=== PATIENT | male | born 1985 | race Caucasian/White ===

== ENCOUNTER 2018-03-06 09:00 | Emergency (ER) | payer SELFPAY ==
[2018-03-06] MEDS ORDERED: KETOROLAC 30 MG/ML INJ ONE (09:37)
[2018-03-06] MEDS ORDERED: ONDANSETRON 4 MG/2 ML VIAL ONE (09:37)
[2018-03-06 10:05] LABS: Absolute Lymphocytes (CBC) 1.6 K/uL (0.7-4.9); Absolute Monocytes 0.8 K/uL (0.1-1.3); Basophils % 0.6 % (0-1.3); Eosinophils % 2.3 % (0-4.4); Hematocrit 42.3 % (39.6-49.0); Lymphocytes % 20.5 % (15.3-44.8); MPV 7.3 fL (7.6-11.3); Monocytes % 10.5 % (3.3-12.3); RBC Red Blood Cell Count 4.73 M/uL (4.33-5.43)
[2018-03-06 10:08] LABS: Urine Blood NEGATIVE (NEG); Urine Glucose NEGATIVE (NEG); Urine Protein 1+ (NEG); Urine pH 7.5 (5.0-7.0)
[2018-03-06 10:15] LABS: Albumin 3.2 g/dL (3.4-5.0); Bilirubin Direct 0.1 mg/dL (0-0.2); Bilirubin Total 0.3 mg/dL (0.2-1.0); Protein, Total 7.1 g/dL (6.4-8.2)
--- NOTE | 2018-03-06 11:19 | RAD REPORT ---
EXAM DESCRIPTION: US - Scrotum Testicles - 03/06/2018 10:06 am CLINICAL HISTORY: Scrotal pain COMPARISON: None FINDINGS: Right testicle measures 4.4 x 2.8 x 2.9 centimeters. Echotexture is homogeneous. Normal bl ood flow Left testicle measures 4 x 2.5 x 3.1 centimeters. Echotexture is homogeneous. Normal blood flow The epididymides are normal in size and echotexture. Normal blood flow is seen. Right scrotal skin thickening is present. IMPRESSION: Right scrotal skin thickening
--- NOTE | 2018-03-06 12:08 | ER ---
Nurse's Notes [facility] Name: Christofer Joshua Age: 33 yrs Sex: Male : 1985 Arrival Date: 03/06/2018 Time: 09:04 Bed 20 Private MD: None, None Diagnosis: Testicular pain Presentation: 03/06 09:12 Presenting complaint: Patient states: Right testicular swelling and groin pain x 1 hr, jl7 inability to void x 2 weeks "Even when I feel like I have to go it just barely trickles out.". Transition of care: patient was not received from another setting of care. Onset of symptoms was March 06, 2018. Risk Assessment: Do you want to hurt yourself or someone else? Patient reports no desire to harm self or others. Initial Sepsis Screen: Does the patient meet any 2 criteria? No. Patient's initial sepsis screen is negative. Does the patient have a suspected source of infection? No. Patient's initial sepsis screen is negative. Care prior to arrival: None. 09:12 Method Of Arrival: Ambulatory [facility] 09:12 Acuity: JANINA 3 jl7 Triage Assessment: 09:15 General: Appears in no apparent distress. uncomfortable, Behavior is calm, cooperative, jl7 appropriate for age. Pain: Complains of pain in right testicle Pain radiates to groin Pain currently is 10 out of 10 on a pain scale. Is continuous, Alleviated by Standing feels better than sitting. EENT: No signs and/or symptoms were reported regarding the EENT system. Neuro: Level of Consciousness is awake, alert, obeys commands, Oriented to person, place, time, situation. Cardiovascular: Patient's skin is warm and dry. Respiratory: Airway is patent Respiratory effort is even, unlabored, Respiratory pattern is regular, symmetrical. GI: No signs and/or symptoms were reported involving the gastrointestinal system. : No signs and/or symptoms were reported regarding the genitourinary system. Derm: Skin is pink, warm \\T\\ dry. Musculoskeletal: No signs and/or symptoms reported regarding the musculoskeletal system. Historical: - Allergies: 09:15 No Known Allergies; jl7 - Home Meds: 09:15 None [Active]; jl7 - PMHx: 09:15 None; jl7 - PSHx: 09:15 None; jl7 - Immunization history:: Adult Immunizations unknown. - Social history:: Smoking status: Patient uses tobacco products, smokes one pack cigarettes per day. - Ebola Screening: : No symptoms or risks identified at this time. Screenin:49 Abuse screen: Denies threats or abuse. Denies injuries from another. Nutritional jl7 screening: No deficits noted. Tuberculosis screening: No symptoms or risk factors identified. Fall Risk IV access (20 points). Total Manuel Fall Scale indicates No Risk (0-24 pts). Assessment: 09:40 General: See triage assessment. jl7 10:40 Reassessment: Patient appears in no apparent distress at this time. Patient and/or jl7 family updated on plan of care and expected duration. Pain level reassessed. Patient is alert, oriented x 3, equal unlabored respirations, skin warm/dry/pink. Patient states feeling better. 12:00 Reassessment: Patient appears in no apparent distress at this time. No changes from jl7 previously documented assessment. Patient and/or family updated on plan of care and expected duration. Pain level reassessed. Patient is alert, oriented x 3, equal unlabored respirations, skin warm/dry/pink. Vital Signs: 09:15 BP 106 / 79; Pulse 97; Resp 16 S; Temp 99.1(O); Pulse Ox 99% on R/A; Weight 83.91 kg jl7 (R); Height 5 ft. 8 in. (172.72 cm) (R); Pain 10/10; 11:36 BP 129 / 81; Pulse 79; Resp 18; Pulse Ox 99% on R/A; mh5 09:15 Body Mass Index 28.13 (83.91 kg, 172.72 cm) jl7 ED Course: 09:04 Patient arrived in ED. mr 09:04 None, None is Private Physician. mr 09:05 Tevin Wang, ZEN is Primary Nurse. jl7 09:06 Marko Mccarthy PA is PHCP. cp 09:06 Yordy Hawkins MD is Attending Physician. cp 09:14 Triage completed. jl7 09:15 Arm band placed on right wrist. jl7 09:40 Missed attempt(s): 20 gauge in right antecubital area. jl7 09:45 Initial lab(s) drawn, by la, sent to lab. Urine collected: clean catch specimen, jl7 cloudy, Bladder scan completed. 45 mL. Inserted saline lock: 22 gauge in right forearm, using aseptic technique. Blood collected. 09:49 Patient has correct armband on for positive identification. Placed in gown. Bed in low jl7 position. Call light in reach. Side rails up X 1. Pulse ox on. NIBP on. Warm blanket given. 09:54 US Scrotum Testicles In Process Unspecified. EDMS 12:26 No provider procedures requiring assistance completed. IV discontinued, intact, jl7 bleeding controlled, No redness/swelling at site. Pressure dressing applied. Administered Medications: 10:15 Drug: TORadol 30 mg Route: IVP; Site: right forearm; jl7 10:45 Follow up: Response: No adverse reaction; Pain is decreased jl7 10:29 Not Given (Patient Refused): Zofran 4 mg IVP once; over 2 minutes jl7 12:15 Drug: Rocephin (cefTRIAXone) 250 mg Route: IM; Site: right deltoid; jl7 12:27 Follow up: Response: No adverse reaction jl7 Outcome: 12:07 Discharge ordered by . ps1 12:26 Discharged to home ambulatory. jl7 12:26 Condition: stable 12:26 Discharge instructions given to patient, family, Instructed on discharge instructions, follow up and referral plans. medication usage, Demonstrated understanding of instructions, follow-up care, medications, Prescriptions given X 3. 12:27 Patient left the ED. jl7 Signatures: Dispatcher [employer] EDTX Sandi Saldaña mr Marko Mccarthy PA PA cp Martinez, Maria 5 Tevin Wang RN RN jl7 Yordy Hawkins MD MD ps1
--- NOTE | 2018-03-06 12:08 | EDPHYS ---
Physician Documentation [facility] Name: Christofer Joshua Age: 33 yrs Sex: Male : 1985 Arrival Date: 03/06/2018 Time: 09:04 Bed 20 Private MD: None, None ED Physician Yordy Hawkins HPI: 03/06 09:18 This 33 yrs old Male presents to ER via Ambulatory with complaints of ps1 Testicular Swelling. 09:18 pain onset for last 4 days. Has had a history of retention for last week described as ps1 feeling like having to defecate to be able to urinate. Pt states that he is monogamous. No new sexual encounters. Pain rated as severe with palpation. . Historical: - Allergies: 09:15 No Known Allergies; jl7 - Home Meds: 09:15 None [Active]; jl7 - PMHx: 09:15 None; jl7 - PSHx: 09:15 None; jl7 - Immunization history:: Adult Immunizations unknown. - Social history:: Smoking status: Patient uses tobacco products, smokes one pack cigarettes per day. - Ebola Screening: : No symptoms or risks identified at this time. ROS: 09:18 Constitutional: Negative for fever, chills, and weight loss, Eyes: Negative for injury, ps1 pain, redness, and discharge, Cardiovascular: Negative for chest pain, palpitations, and edema, Respiratory: Negative for shortness of breath, cough, wheezing, and pleuritic chest pain, Abdomen/GI: Negative for abdominal pain, nausea, vomiting, diarrhea, and constipation, MS/Extremity: Negative for injury and deformity, Skin: Negative for injury, rash, and discoloration, Neuro: Negative for headache, weakness, numbness, tingling, and seizure, Psych: Negative for depression, anxiety, suicide ideation, homicidal ideation, and hallucinations. 09:18 : Positive for urinary symptoms, testicular pain Exam: 09:18 Constitutional: This is a well developed, well nourished patient who is awake, alert, ps1 and in no acute distress. Head/Face: Normocephalic, atraumatic. Eyes: Pupils equal round and reactive to light, extra-ocular motions intact. Lids and lashes normal. Conjunctiva and sclera are non-icteric and not injected. Chest/axilla: Normal chest wall appearance and motion. Nontender with no deformity. No lesions are appreciated. Cardiovascular: Regular rate and rhythm. No gallops, murmurs, or rubs. Normal PMI, no JVD. No pulse deficits. Respiratory: Lungs have equal breath sounds bilaterally, clear to auscultation and percussion. No rales, rhonchi or wheezes noted. No increased work of breathing, no retractions or nasal flaring. Abdomen/GI: Soft, non-tender, with normal bowel sounds. No distension or tympany. No guarding or rebound. No evidence of tenderness throughout. Skin: Warm, dry with normal turgor. Normal color with no rashes, no lesions, and no evidence of cellulitis. MS/ Extremity: Pulses equal, no cyanosis. Neurovascular intact. Full, normal range of motion. Neuro: Awake and alert, GCS 15, oriented to person, place, time, and situation. Cranial nerves II-XII grossly intact. Sensory grossly intact. 09:18 : Male external genitalia: Circumcision noted. cremasteric reflex present right, present left, tenderness, of the right testicle is noted, of the epididymis area. Vital Signs: 09:15 BP 106 / 79; Pulse 97; Resp 16 S; Temp 99.1(O); Pulse Ox 99% on R/A; Weight 83.91 kg jl7 (R); Height 5 ft. 8 in. (172.72 cm) (R); Pain 10/10; 11:36 BP 129 / 81; Pulse 79; Resp 18; Pulse Ox 99% on R/A; mh5 09:15 Body Mass Index 28.13 (83.91 kg, 172.72 cm) jl7 MDM: 09:06 Patient medically screened. cp 03/06 09:17 Order name: CBC with Diff; Complete Time: 10:09 ps1 03/06 09:17 Order name: Creatinine for Radiology; Complete Time: 10:20 ps1 03/06 09:17 Order name: Hepatic Function; Complete Time: 10:20 ps1 03/06 09:17 Order name: Lipase; Complete Time: 10:20 ps1 03/06 09:17 Order name: CMP; Complete Time: 10:20 ps1 03/06 09:17 Order name: IV Saline Lock; Complete Time: 09:48 ps1 03/06 09:17 Order name: Labs collected and sent; Complete Time: 09:48 ps1 03/06 09:17 Order name: US Scrotum Testicles; Complete Time: 11:29 ps1 03/06 09:17 Order name: GC (GONORR/CHLAMYDIA) Probe ps1 03/06 09:34 Order name: Urine Dipstick--Ancillary (enter results); Complete Time: 10:09 bd 03/06 09:17 Order name: Urine Dipstick-Ancillary (obtain specimen); Complete Time: 09:48 ps1 03/06 09:18 Order name: Bladder Scanner; Complete Time: 09:48 ps1 Administered Medications: 10:15 Drug: TORadol 30 mg Route: IVP; Site: right forearm; jl7 10:45 Follow up: Response: No adverse reaction; Pain is decreased jl7 10:29 Not Given (Patient Refused): Zofran 4 mg IVP once; over 2 minutes jl7 12:15 Drug: Rocephin (cefTRIAXone) 250 mg Route: IM; Site: right deltoid; jl7 12:27 Follow up: Response: No adverse reaction jl7 Disposition: 03/06/18 12:07 Discharged to Home. Impression: Testicular pain. - Condition is Stable. - Discharge Instructions: Epididymitis. - Prescriptions for Anaprox DS 550 mg Oral Tablet - take 1 tablet by ORAL route every 12 hours As needed; 20 tablet. Levaquin 750 mg Oral Tablet - take 1 tablet by ORAL route once daily for 10 days; 10 tablet. Medrol (Luis) 4 mg Oral Tablets, Dose Pack - take 1 tablet by ORAL route as directed - follow package instructions; 1 packet. - Medication Reconciliation Form, Thank You Letter, Antibiotic Education, Prescription Opioid Use form. - Follow up: Private Physician; When: As needed; Reason: Recheck today's complaints, Continuance of care, Re-evaluation by your physician. Follow up: Emergency Department; When: As needed; Reason: Fever > 102 F, Worsening of condition. - Problem is new. - Symptoms have improved. Signatures: Dispatcher [employer] EDMS Marko Mccarthy PA PA cp Leal, Jahala, RN RN jl7 Yordy Hawkins MD MD ps1 Corrections: (The following items were deleted from the chart) 09:20 09:19 BASIC METABOLIC PANEL+C.LAB.BRZ ordered. EDCA EDMS 12:27 12:07 03/06/2018 12:07 Discharged to Home. Impression: Testicular pain. Condition is jl7 Stable. Forms are Medication Reconciliation Form, Thank You Letter, Antibiotic Education, Prescription Opioid Use. Follow up: Private Physician; When: As needed; Reason: Recheck today's complaints, Continuance of care, Re-evaluation by your physician. Follow up: Emergency Department; When: As needed; Reason: Fever > 102 F, Worsening of condition. Problem is new. Symptoms have improved. ps1
[2018-03-06] MEDS ORDERED: CEFTRIAXONE 250 MG/VIAL ONE (12:18)
[2018-03-06] MEDS ORDERED: WATER FOR INJ,STERILE 10 ML ONE (12:18)
[2018-03-09 05:23] LABS: C.trachomatis RNA,TMA Not Detected (Not Detected)
== END 2018-03-06 12:27 | disposition home or self-care (01) ==
LOC: ER 09:00
DX: N50.819 Testicular pain, unspecified (principal); F17.210 Nicotine dependence, cigarettes, uncomplicated
CPT/HCPCS: 36415; 76870; 80053; 80076; 81003; 83690; 85025; 87490; 87590; 96372; 96374; 99284; J0696; J2405

== ENCOUNTER 2022-09-02 20:54 | Emergency (ER) | payer SELFPAY ==
--- NOTE | 2022-09-03 00:31 | ER ---
Nurse's Notes [facility] Name: Christofer Joshua Age: 37 yrs Sex: Male : 1985 Arrival Date: 09/02/2022 Time: 20:54 Bed IW1 Private MD: Diagnosis: Right calcaneal avulsion fracture Presentation: 09/02 22:01 Chief complaint: Patient states: this morning i was in an attic, stepped on a beam, lg3 rolled my right ankle, fell, left knee went through ceiling beneath me and my right ankle was stuck under the beam and popped several times. swelling and pain increasingly getting worse in right ankle. Care prior to arrival: None. Mechanism of Injury: Fall. Trauma event details: Injury occurred in the [facility]. 22:01 Acuity: JANINA 3 lg3 22:01 Method Of Arrival: Ambulatory lg3 Trauma Activation: Not Applicable Physician: ED Physician; Name: ; Notified At: ; Arrived At: Physician: General Surgeon; Name: ; Notified At: ; Arrived At: Physician: Radiology; Name: ; Notified At: ; Arrived At: Physician: Respiratory; Name: ; Notified At: ; Arrived At: Physician: Lab; Name: ; Notified At: ; Arrived At: - Immunization history: Last tetanus immunization: unknown. Screenin:01 Abuse screen: Denies threats or abuse. Denies injuries from another. Tuberculosis lg3 screening: No symptoms or risk factors identified. Primary Survey: 22:01 NO uncontrolled hemorrhage observed. A: The client is awake and alert. The airway is lg3 patent. Breathing/Chest: Spontaneous respiratory effort, equal unlabored respirations, breath sounds clear bilaterally, regular pattern, symmetrical chest rise and fall. Circulation: No external hemorrhage present. Regular and strong central pulse, skin warm/dry/normal color. Disability Pupils are equal, round, reactive to light and accommodation. Client is alert. Client responds to verbal stimuli. Assessment: 22:01 General: Appears in no apparent distress. uncomfortable, Behavior is calm, cooperative. lg3 Pain: Complains of pain in right ankle, lateral aspect of right foot and dorsum of right foot. Neuro: No deficits noted. Nevarez Agitation-Sedation Scale (RASS): 0 - Alert and Calm Level of Consciousness is awake, alert, obeys commands, Oriented to person, place, time, situation. EENT: No deficits noted. No signs and/or symptoms were reported regarding the EENT system. Cardiovascular: No deficits noted. Denies chest pain, shortness of breath. Respiratory: No deficits noted. Airway is patent Respiratory effort is even, unlabored, Respiratory pattern is regular, symmetrical. GI: No deficits noted. No signs and/or symptoms were reported involving the gastrointestinal system. : No deficits noted. No signs and/or symptoms were reported regarding the genitourinary system. Derm: Skin is intact, is healthy with good turgor, Skin is dry, Skin is normal, Skin temperature is warm Bruising that is dark purple, on right ankle. Derm:. Musculoskeletal: Circulation, motion, and sensation intact. Range of motion: limited in right ankle Swelling present in right ankle. Vital Signs: 22:01 BP 124 / 82; Pulse 94; Resp 18 S; Temp 98.7(O); Pulse Ox 100% on R/A; Weight 90.72 kg lg3 (R); Height 5 ft. 9 in. (R); 22:01 Body Mass Index 29.53 (90.72 kg, 175.26 cm) lg3 Clinton Coma Score: 22:01 Eye Response: spontaneous(4). Motor Response: obeys commands(6). Verbal Response: lg3 oriented(5). Total: 15. Trauma Score (Adult): 22:01 Eye Response: spontaneous(1); Verbal Response: oriented(1); Motor Response: obeys lg3 commands(2); Systolic BP: > 89 mm Hg(4); Respiratory Rate: 10 to 29 per min(4); Pranav Score: 15; Trauma Score: 12 ED Course: 20:57 Patient arrived in ED. jj6 21:32 Sue Rowland MD is Attending Physician. sd2 22:03 Triage completed. lg3 23:20 XRAY Ankle RIGHT 3 view In Process Unspecified. EDMS 23:20 XRAY Foot RIGHT 3 View In Process Unspecified. EDMS 23:20 XRAY Tib Fib RIGHT In Process Unspecified. EDMS 09/03 00:30 Mark Coppola MD is Referral Physician. sd2 Administered Medications: No medications were administered Outcome: 00:30 Discharge ordered by . sd2 00:42 Patient left the ED. kd3 Signatures: Dispatcher [facility] Shanell Toussaint, RN RN lg3 Stephie Vega jj6 Matilde Lizarraga RN RN kd3 Sue Rowland MD MD sd2
--- NOTE | 2022-09-03 00:31 | EDPHYS ---
Physician Documentation [facility] Name: Christofer Joshua Age: 37 yrs Sex: Male : 1985 Arrival Date: 09/02/2022 Time: 20:54 Bed IW1 Private MD: ED Physician Sue Rowland HPI: 09/03 00:24 This 37 yrs old Male presents to ER via Ambulatory with complaints of Fall sd2 Injury. 00:24 37 yo M presents with CC of right ankle pain s/p fall. States he was in an attic when sd2 he fell through while trying to put his left knee down and his right ankle ended up rolled and twisted back and he heard it pop several times. States significant swelling to the area as well. Recovering from narcotic abuse and declines pain medications. . - Immunization history: Last tetanus immunization: unknown. ROS: 00:26 MS/Extremity: Positive for injury, swelling and negative for deformity, Skin: Negative sd2 for injury, rash, and discoloration. Exam: 00:26 Constitutional: This is a well developed, well nourished patient who is awake, alert, sd2 and in no acute distress. Skin: Warm, dry with normal turgor. Normal color with no rashes, no lesions, and no evidence of cellulitis. MS/ Extremity: Pulses equal, no cyanosis. Neurovascular intact. Significant swelling noted to R ankle area with associated TTP. Vital Signs: 09/02 22:01 BP 124 / 82; Pulse 94; Resp 18 S; Temp 98.7(O); Pulse Ox 100% on R/A; Weight 90.72 kg lg3 (R); Height 5 ft. 9 in. (R); 22:01 Body Mass Index 29.53 (90.72 kg, 175.26 cm) lg3 Pranav Coma Score: 22:01 Eye Response: spontaneous(4). Motor Response: obeys commands(6). Verbal Response: lg3 oriented(5). Total: 15. Trauma Score (Adult): 22:01 Eye Response: spontaneous(1); Verbal Response: oriented(1); Motor Response: obeys lg3 commands(2); Systolic BP: > 89 mm Hg(4); Respiratory Rate: 10 to 29 per min(4); Refugio Score: 15; Trauma Score: 12 MDM: 09/03 00:12 Patient medically screened. sd2 00:26 Differential diagnosis: fracture, contusion, sprain, strain, ligamentous injury among sd2 others. Data reviewed: vital signs, nurses notes. ED course: X-rays show calcaneal avulsion fracture. Pt waiting in waiting room for results but has left at this time prior to receiving results or having further treatment. Splint and further management unable to be performed. . 09/02 22:34 Order name: XRAY Ankle RIGHT 3 view sd2 09/02 22:45 Order name: XRAY Foot RIGHT 3 View sd2 09/02 22:45 Order name: XRAY Tib Fib RIGHT sd2 Administered Medications: No medications were administered Disposition Summary: 09/03/22 00:30 Discharge Ordered Location: Home sd2 Problem: new sd2 Symptoms: are unchanged sd2 Condition: Stable sd2 Diagnosis - Right calcaneal avulsion fracture sd2 Followup: sd2 - With: Mark Coppola MD - When: 2 - 3 days - Reason: Recheck today's complaints, Continuance of care Discharge Instructions: - Discharge Summary Sheet sd2 - Calcaneal Fracture Repair Surgery sd2 Forms: - Medication Reconciliation Form sd2 - Thank You Letter sd2 - Antibiotic Education sd2 - Prescription Opioid Use sd2 - Patient Portal Instructions sd2 Signatures: Dispatcher [employer] Shanell Toussaint, RN RN lg3 Sue Rowland MD MD sd2 Corrections: (The following items were deleted from the chart) 00:27 00:24 37 yo M presents with CC of . sd2 sd2 00:31 00:12 Splint - Leg: Short Leg ordered. sd2 kd3 00:31 00:12 Crutches ordered. sd2 kd3
[2022-09-03 01:54] VITALS: BP 124/82; TEMP 98.7; O2SAT 100
--- NOTE | 2022-09-03 20:39 | RAD REPORT ---
EXAM DESCRIPTION: XR Right Tibia and Fibula, 2 Views CLINICAL HISTORY: The patient is 37 years old and is Male; PAIN TECHNIQUE: Frontal and lateral views of the right tibia and fibula. COMPARISON: No relevant prior studies available. FINDINGS: BONES/JOINTS: The tibia and fibula are intact. Redemonstration of a small avulsion fract ure of the calcaneus is present. No dislocation. SOFT TISSUES: Anterior lateral ankle soft tissue swelling is present. No radiopaque foreign bod y. IMPRESSION: Small calcaneal avulsion fracture. Electronically signed by: Dinora Wilder MD 09/03/2022 12:04 AM CDT Due to temporary technical issues with the PACS/Fluency reporting system, reports are being signed by the in house radiologists without review as a courtesy to insure prompt reporting. The interpreting radiologist is fully responsible for the content of the report.
--- NOTE | 2022-09-03 20:52 | RAD REPORT ---
EXAM DESCRIPTION: XR Right Ankle Complete, 3 or More Views CLINICAL HISTORY: The patient is 37 years old and is Male; PAIN TECHNIQUE: Frontal, lateral and oblique views of the right ankle. COMPARISON: No relevant prior studies available. FINDINGS: BONES/JOINTS: A small avulsion fracture off of the calcaneus is present. No dislocatio n. SOFT TISSUES: Lateral anterior ankle soft tissue swelling is present. IMPRESSION: Small calcaneal avulsion fracture. Electronically signed by: Dinora Wilder MD 09/03/2022 12:02 AM CDT Due to temporary technical issues with the PACS/Fluency reporting system, reports are being signed by the in house radiologists without review as a courtesy to insure prompt reporting. The interpreting radiologist is fully responsible for the content of the report.
--- NOTE | 2022-09-03 21:00 | RAD REPORT ---
EXAM DESCRIPTION: XR Right Foot Complete, 3 or More Views CLINICAL HISTORY: The patient is 37 years old and is Male; PAIN TECHNIQUE: Frontal, lateral and oblique views of the right foot. COMPARISON: No relevant prior studies available. FINDINGS: BONES/JOINTS: A small avulsion fracture off of the anterior aspect of the calcaneus is p resent. No dislocation. SOFT TISSUES: Anterior lateral ankle soft tissue swelling is present. No radiopaque foreign bod y. IMPRESSION: Small calcaneal avulsion fracture. Electronically signed by: Dinora Wilder MD 09/03/2022 12:03 AM CDT Due to temporary technical issues with the PACS/Fluency reporting system, reports are being signed by the in house radiologists without review as a courtesy to insure prompt reporting. The interpreting radiologist is fully responsible for the content of the report.
== END 2022-09-03 00:42 | disposition home or self-care (01) ==
LOC: ER 20:54
DX: S92.001A Unspecified fracture of right calcaneus, initial encounter for closed fracture (principal)
CPT/HCPCS: 99282